=== PATIENT | male | born 1945 | race Caucasian/White ===

== ENCOUNTER 2017-04-04 10:12 | Inpatient (IN) | payer OTHER ==
[~2017-04-04 10:12] MED LIST: BUPIVACAINE 0.5% W/ EPI - 10 ML VIAL ONE; BUPivacaine Inj 0.25% PF - 10ml vial ONE; KETAMINE 100 MG/1 ML - 5 ML ONE; LIDOCAINE MPF 2% - 5 ML (20 MG/1 ML) ONE; MIDAZOLAM 5 MG/1 ML ONE; ROCURONIUM 10 MG/1 ML - 5 ML VIAL IVP ONE; Sodium Chloride 0.9% vial 10 ML ONE; fentaNYL Inj 250 MCG/5 ML VIAL ONE
[2017-04-04] MEDS ORDERED: Lactated Ringers 1,000 ML PRIMARY IV ONE ×2 (10:17→11:34)
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
[2017-04-04] MEDS ORDERED: DEXAMETHASONE PF 10 MG/1 ML VIAL ONE (11:33)
[2017-04-04] MEDS ORDERED: Ondansetron ODT Tab 8 MG TAB PO PRN (11:36)
[2017-04-04] MEDS ORDERED: fentaNYL Inj 100 MCG/2 ML VIAL IVP PRN (11:36)
[2017-04-04] MEDS ORDERED: HYDROmorphone 2 MG/1 ML IVP PRN (11:36)
[2017-04-04] MEDS ORDERED: ONDANSETRON 4 MG/2 ML VIAL IVP PRN ×3 (11:36→13:43)
[2017-04-04] MEDS ORDERED: NORMAL SALINE 10 ML SYRINGE FLUSH IVP PRN ×2 (11:36→12:38)
[2017-04-04] MEDS ORDERED: ATROPINE SULFATE 0.4 MG/1 ML VIAL IVP PRN (11:36)
[2017-04-04] MEDS ORDERED: Acetaminophen 1000mg Inj 1,000 MG in Premix 1 BAG IV ONE (11:36)
[2017-04-04] MEDS ORDERED: Lactated Ringers 1,000 ML PRIMARY IV SCH (11:45)
[2017-04-04] MEDS ORDERED: ROCURONIUM 10 MG/1 ML - 5 ML VIAL IVP ONE (11:51)
[2017-04-04] MEDS ORDERED: BUPivacaine Liposome/PF (Exparel) Inj 20ml vial INFIL ONE ×2 (12:00→12:28)
[2017-04-04] MEDS ORDERED: KETOROLAC 30 MG/1 ML VIAL ONE (12:16)
[2017-04-04] MEDS ORDERED: SUGAMMADEX SODIUM 200 MG/2 ML VIAL IV ONE ×2 (12:26→12:28)
--- NOTE | 2017-04-04 12:37 | GEN.OPNOTE ---
Operative Note Surgery Date: 04/04/17 Preoperative Diagnosis: Acute appendicitis Postoperative Diagnosis: Acute appendicitis Procedure: Appendectomy. Peritoneal biopsy Surgeon: Dennis Avalos MD Anesthesia Provider: Fiorella Saavedra CRNA Anesthesia Type: General Estimated Blood Loss (mL): 50 Fluids: LR please see anesthesia notes in EMR Pathology: Appendix sent for pathology. Mucinous cyst sent to pathology Indications: Patient's been having abdominal pain. CT scan showed he had acute appendicitis. Patient has received Cipro and Zosyn and vancomycin at the [facility] prior to be in transferred to [facility] Findings: Patient had a necrotic appendix. It was adherent to the retroperitoneum below the terminal ileum Complications: None noted Operative Summary: Patient is brought in operative room. Placed supine position. Given general trach anesthesia. Was prepped draped sterile fashion. Timeout performed per protocol. I made incision in the right lower quadrant over maximum tenderness. Hemostasis team electrocautery dissection to Timothy Ks tissue electrocautery. Initial did a muscle-splitting incision. Opened the posterior sheath. Place an Arvin retractor in. At this point we found a floppy cecum but could not identify the full appendix. Appendix actual behind the terminal ileum. The terminal ileum was stuck down into the pelvis. I then had a do the transverse muscle-splitting incision. This Kibbe adequate exposure. I then had a mobilize the cecum from which retroperitoneal attachments. I also added do some a lysis of adhesion of the small bowel and the terminal ileum. This gave adequate exposure so I can identified the appendix. I then did blunt finger dissection and sharp dissection to completely mobilize the appendix from its adherence to the retroperitoneum. Patient did have a necrotic wall. There did not appear to be a perforation. I doubly clamped the appendiceal base and divided the appendix. Doubly tied with 0 Vicryl suture. Cauterized the tip to the mucoceles. I then dissected the mesoappendix clamped and divided the mesoappendix. And handed the appendix off the surgical specimen. The tip of the appendix was malformed. There is some bleeding from retroperitoneum the had a be sutured let ligated with 30 Vicryl suture. After adequate hemostasis , the abdominal cavity was irrigated. I then ran the small bowel check and for any enterotomies none was noted. Off the very end of the cecum there was a mucinous cyst that I sharply dissected free. Hemostasis obtained left cautery. I returned the colon to its anatomical position. After removing Arvin retractor, I closed the posterior sheath with 0 Vicryl continuous running suture. At this point all counts were correct. I closed the anterior fascia with 0 Prolene continuous running suture. Irrigated the subcutaneous tissue. Infiltrated 20 mg of Exoprel for postoperative pain control. Skin reapproximated using skin sonam. Radiofrequency wand was used to see if there is any sponges left in the patient. None were noted. Patient Problems - Patient Problem List (1) Acute appendicitis Current Visit: Yes Status: Acute
[2017-04-04] MEDS ORDERED: KETOROLAC 15 MG/1 ML VIAL IVP PRN (12:38)
[2017-04-04] MEDS ORDERED: HYDROcodone-APAP 7.5 MG-325 MG TABLET PO PRN ×2 (12:38→13:43)
[2017-04-04] MEDS ORDERED: MORPHINE SULFATE 2 MG/1 ML IVP PRN ×2 (12:38→13:43)
[2017-04-04] MEDS ORDERED: NALOXONE 0.4 MG/1 ML VIAL IVP PRN ×2 (12:38→13:43)
[2017-04-04] MEDS ORDERED: Piperacillin/Tazobactam Inj 3.375 GM in Sodium Chloride 0.9% 100 ML IV SCH ×2 (12:45→19:00)
[2017-04-04] MEDS ORDERED: D5-1/2NS 1,000 ML PRIMARY IV SCH (12:45)
[2017-04-04] MEDS: D5-1/2NS 1,000 ML PRIMARY IV SCH (14:38)
[2017-04-04] MEDS: Piperacillin/Tazobactam Inj 3.375 GM in Sodium Chloride 0.9% 100 ML IV SCH ×2 (15:29→21:42)
--- NOTE | 2017-04-04 17:20 | CONSULT ---
Consult Note - Consult Consult Date: 04/04/17 Reason for Consult: PostOp Consulation : General Surgery Requesting Physician: Dr. Avalos Primary Care Provider: NONE NONE History and Physical - History of Present Illness Date and Time of Service: 04/04/2017, 1710 Chief Complaint: abdominal pain History of Present Illness: This is a 72 YO male that presented in transfer from [place], [place], with an accute appendicitis. The patient presented there yesterday or today with lower quadrant abdominal pain of acute onset. He had a history of prior diverticulitis that required a bowel resection. He was placed on cipro and vancomycin, but pain persisted, so a CT scan of the abdomen and pelvis was done and an acute appendicitis was diagnosed. He was given a dose of Invanz and transferred here for an appendectomy. Apparently, the patient has had hypoxia as well and was satting below 91% on room air. A CTA of the chest was done and was negative for pulmonary embolism or pneumonia. 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 The patient is still a little confused coming out of surgery, but denies any shortness of breath, chest pain, or other symptoms. He does mention he feels like he is going to pass out when he bends over to picker operator after his dog when walking the dog. He does not feel that right now. Taking a deep breath makes his abdominal pain worse, so he could be splinting due to abdominal pain. He denies sleep apnea. He denies a cough or chest pain. Thus far, no fever here. I was asked to see the patient for the hypoxia he had prior to OR. Currently, the patient is on 4 LPM of [place] oxygen. He has not had any pain mediations after surgery, but again, he has had a slow time coming out of anesthesia. Past Medical History Medical History: 1. Hypertension. 2. Hypercholesterolemia. 3. arthritis. 4. rotator cuff tear Surgical History: Patient's had a left hemicolectomy. He's had foot surgery. He's had 2 left knee surgeries Pertinent Family History: Coronary artery disease and heart failure Past Social History: does not smoke or drink. Lives alone [place]. Has healthy kids in [place]. Tobacco Use: Former Smoker Substance Use Type: None Alcohol Use: None Review of Systems - Review of Systems All Systems: Reviewed & No Additional Complaints Except as Stated - Respiratory Respiratory: REPORTS: Negative System Review - Cardiovascular Cardiovascular: REPORTS: Syncope (Presyncope symptoms when picking up after his dogs on walks, but no actual syncopal episodes.), Other (Denies PND, denies objective sleep apnea symptoms, denies daytime somnolence.) - Gastrointestinal Gastrointestinal / Abdominal: REPORTS: Other (History of diverticular problems. But not currently.), See HPI - Genitourinary Genitourinary: REPORTS: Other (Has had urine infections, but better now.) Medication / Allergies Home Medications: Home Medications Medication Instructions Recorded Confirmed Type Flaxseed Oil [Flax Seed Oil] 1 cap PO DAILY cap 06/09/16 04/04/17 History Gluc 2Kcl/Chondr/Aida Hy/Hy AC 1 cap PO DAILY cap 06/09/16 04/04/17 History [Glucosamine & Chondroitin Cap] Omeprazole 1 cap PO DAILY cap 06/09/16 04/04/17 History Pravastatin Sodium [Pravachol] 1 tab PO DAILY tab 06/09/16 04/04/17 History Allergies/Adverse Reactions: Allergies Allergy/AdvReac Type Severity Reaction Status Date / Time No Known Allergies Allergy Verified 04/04/17 14:06 Exam - Vitals Vital Signs: Vital Signs Temperature 97.6 F Temperature Source Temporal Artery Scan Pulse Rate [Pulse Oximeter] 59 Pulse Rate 59 Respiratory Rate 16 Blood Pressure [Left Arm] 125/77 Blood Pressure 123/75 Pulse Ox 91 Oxygen Flow Rate 4 Oxygen Flow Rate 10 Oxygen Delivery Method Nasal Cannula Height 5 ft 10 in Weight 218 lb - General General Appearance: POSITIVE: No Acute Distress, Cooperative - Head Head Exam: POSITIVE: Normal Inspection, Normocephalic, Atraumatic - Eye Eye Exam: POSITIVE: No Scleral Icterus - Neck Neck Exam: POSITIVE: Normal Inspection, No Tenderness, No Thyromegaly - Respiratory Respiratory Exam: POSITIVE: Clear to Auscultation - Bilaterally, Breathing Non Labored, Normal to Percussion and Palpation - Cardiovascular Cardiovascular Exam: POSITIVE: RRR, No Murmur, No Clicks, No Gallops, No Rubs, No JVD - GI/Abdominal GI/Abdominal Exam: POSITIVE: Normal Bowel Sounds, Non Distended, Soft (Tender in right lower quadrant, even when pressing in the upper quadrants) - Rectal Rectal Exam: POSITIVE: Deferred - External Exam: POSITIVE: Deferred Exam: POSITIVE: Deferred - Extremities Extremities Exam: POSITIVE: No Clubbing Present, No Edema Present, No Cyanosis Present - Back Back Exam: POSITIVE: No CVA Tenderness - Neurological Neurological Exam: POSITIVE: Alert, Oriented x 3, No Facial Droop, Speech Intact / Clear, Moves All Extremities Equally - Psychiatric Psychiatric Exam: POSITIVE: Normal Affect, Normal Mood Results - Labs Labs - Last 24 Hours: I reviewed labs from [place], [place], and the creatinine is slightly elevated at 1.46. CT scan reports for the chest and the abdomen were reviewed. I do not have the films to look at. On those films, the patient has a ascending aortic aneurysm of 4 cm. He had positive findings for acute appendicitis. - EKG Data -: EKG Interpreted by Me Rate: Normal EKG Shows Normal: Sinus Rhythm - EKG Data EKG Interpretation: Other (This was reviewed from [place], [place], on my view of the tracing, the patient does have normal sinus rhythm with an occasional premature atrial beat.) - Imaging Status: Report Reviewed by Me (As noted above.) Assessment and Plan - Patient Problems (1) Hypoxia Current Visit: Yes Status: Acute (2) Acute appendicitis Current Visit: Yes Status: Acute Qualifiers: Acute appendicitis type: unspecified acute appendicitis type Qualified Description: Acute appendicitis, unspecified acute appendicitis type Qualifier Code(s): (K35.80) Unspecified acute appendicitis (3) Ascending aortic aneurysm Current Visit: Yes Status: Acute (4) Hypertension Current Visit: Yes Status: Chronic Qualifiers: Hypertension type: essential hypertension Qualified Description: Essential hypertension Qualifier Code(s): (I10) Essential (primary) hypertension (5) Hypercholesterolemia Current Visit: Yes Status: Acute - Assessment / Plan Additional Assessment/Plan Details: Hypoxemia could have a large differential, but I suspect overall this is probably from splinting in the setting of a acute appendicitis and acute abdominal pain. I think an incentive spirometer will help with this. I will order that. He's had imaging of the chest and pulmonary embolism is been ruled out. There is no pneumonia reported on that study. He might benefit from a sleep apnea study as an outpatient as he does have a body habitus suggestive of obstructive sleep apnea. However, he does not have hypersomnolence during the day. For the ascending aortic aneurysm, I think he should visit with a associate accountant or thoracic surgeon in the future, but it is too small this time to do any interventions. I will make sure he is on beta blockers prior to discharge but hold off today. Stop his diuretic. Patient may warrant further cardiac workup and evaluation including a stress test given his aortic aneurysm finding, but would like him to improve from the appendicitis first. He is artery status post appendectomy, so we can do a stress test, probably chemical stress test, in the near future. He is not a candidate for treadmill stress test given his aortic aneurysm. They keep his consult, will be our pleasure to continue to follow this patient during his hospital stay and advise.
[2017-04-04] MEDS ORDERED: Pravastatin 80mg Tab PO SCH (21:00)
[2017-04-04] MEDS: KETOROLAC 15 MG/1 ML VIAL IVP PRN (21:41)
[2017-04-05] MEDS ORDERED: NORMAL SALINE 10 ML SYRINGE FLUSH IVP PRN ×2 (00:36→04:07)
[2017-04-05] MEDS: D5-1/2NS 1,000 ML PRIMARY IV SCH (00:40)
[2017-04-05] MEDS: KETOROLAC 15 MG/1 ML VIAL IVP PRN ×2 (04:03→11:36)
[2017-04-05] MEDS: Piperacillin/Tazobactam Inj 3.375 GM in Sodium Chloride 0.9% 100 ML IV SCH ×2 (04:04→10:09)
[2017-04-05 05:58] LABS: HEMATOCRIT 33.6 % (42.0-52.0); HEMOGLOBIN 11.1 g/dL (14.0-18.0); MEAN CORPUSCULAR HEMOGLOBIN 30.8 PG (27-31); MEAN CORPUSCULAR VOLUME 93.3 FL (80-90)
[2017-04-05 05:59] LABS: BASOPHILS # (AUTO) 0.01 10*3/UL; BASOPHILS % (AUTO) 0.1 % (0-1); EOSINOPHILS # (AUTO) 0 10*3/UL; EOSINOPHILS % (AUTO) 0 % (0-8); LYMPHOCYTES # (AUTO) 0.52 10*3/uL; MEAN PLATELET VOLUME 11.1 FL (7.4-12.2); MONOCYTES # (AUTO) 0.46 10*3/UL (0.3-0.8); MONOCYTES % (AUTO) 4.5 % (5-15); NEUTROPHILS # (AUTO) 9.13 10*3/UL; NEUTROPHILS % (AUTO) 90.1 % (50-80); PLATELET MORPHOLOGY COMMENT NORMAL MORPHOLOGY (NORM); RBC MORPHOLOGY COMMENT NORMAL MORPHOLOGY (NORM); WBC MORPHOLOGY COMMENT NORMAL MORPHOLOGY (NORM)
[2017-04-05 06:00] LABS: BLOOD UREA NITROGEN 21 mg/dL (7-22); CALCIUM 7.7 mg/dL (8.7-10.7); EST GLOMERULAR FILTRATION > 60 (>60 ml/min/1.73m(2)); SERUM ALBUMIN 2.8 g/dL (3.5-4.8)
[2017-04-05] MEDS ORDERED: OMEPRAZOLE 20 MG CAPSULE PO SCH (07:00)
--- NOTE | 2017-04-05 09:02 | DCSUMMARY ---
Discharge Summary Admit Date: 04/04/17 Discharge Date: 04/05/17 Admitting Diagnosis: acute appendicitis Discharge Diagnosis: Acute appendicitis with a necrotic appendix Primary Surgery and Date: 04/04/2017 appendectomy Hospital Course: 72-year-old gentleman who comes in with acute appendicitis. Patient time of surgery was found to have necrotic appendix. Is more extensive surgery than a normal appendectomy secondary to adhesions. Patient actually did very well with the surgery having no problems. First postoperative day his white count was normal and he is afebrile. He is stating 7 very little discomfort. He was continued on antibiotics for first postoperative day. He is to the point where he can be discharged home. Because of difficulties getting the patient back up to [facility] for postoperative follow-up we will work closely with Dr. Mehta. Dr. Mehta will takes sonam out in 7-10 days. I have personally spoken to Dr. Mehta about this. Any additional problems he will contact us and we will see the patient. Also, the patient needs to follow-up with his primary care doctors about possible sleep apnea and to follow his aortic abdominal aneurysm. Dr. Mulligan (hospitalist) would like to gentleman who started on beta blockers Exam - Vitals Vital Signs: Vital Signs Temperature 98.0 F Temperature Source Temporal Artery Scan Pulse Rate [Apical] 60 Pulse Rate [Pulse Oximeter] 64 Pulse Rate 59 Respiratory Rate 20 Blood Pressure [Left Arm] 108/75 Blood Pressure 123/75 Pulse Ox 92 Oxygen Flow Rate 1.5 Oxygen Flow Rate 10 Oxygen Delivery Method Nasal Cannula Height 5 ft 10 in Weight 98.883 kg - General General Appearance: POSITIVE: No Acute Distress - Head Head Exam: POSITIVE: Normocephalic - Eye Eye Exam: POSITIVE: PERRL, EOMI - Respiratory Respiratory Exam: POSITIVE: Clear to Auscultation - Bilaterally, Breathing Non Labored - Cardiovascular Cardiovascular Exam: POSITIVE: RRR, No Murmur - GI/Abdominal GI/Abdominal Exam: POSITIVE: Normal Bowel Sounds, Non Tender, Non Distended, Soft Additional GI/Abdominal Exam Details: Dressings are dry incision clean Patient Problems - Patient Problem List (1) Acute appendicitis Current Visit: Yes Status: Acute Qualifiers: Acute appendicitis type: unspecified acute appendicitis type Qualified Description: Acute appendicitis, unspecified acute appendicitis type Qualifier Code(s): (K35.80) Unspecified acute appendicitis
--- NOTE | 2017-04-05 09:54 | CRNA.PROGR ---
Anesthesia Note Anesthesia Progress Note: Post open appy 04/04/17 Lying in bed, cheerful. States he's eaten. Not nauseated. Room air now. Denies any more "chills". States that when he awoke all staff looked like fish with fins. Not frightening but vivid. States his discomfort is controlled. " A little sore" , points to right lower quadrant. Laboratory Results 04/05/17 Range/Units 04:20 WBC 10.14 (4.8-10.8) 10^3/uL RBC 3.60 L (4.70-6.10) 10^6/uL Hgb 11.1 L (14.0-18.0) g/dL Hct 33.6 L (42.0-52.0) % MCV 93.3 H (80-90) FL MCH 30.8 (27-31) PG MCHC 33.0 (33-37) g/dL RDW Std Deviation 44.8 (39-50) fL RDW Coeff of Kyle 13.4 (11.5-14.5) % Plt Count 120 L (140-350) 10*3/uL MPV 11.1 (7.4-12.2) FL Immature Gran % (Auto) 0.2 (0-5) % Neut % (Auto) 90.1 H (50-80) % Lymph % (Auto) 5.1 L (10-50) % Riley % (Auto) 4.5 L (5-15) % Eos % (Auto) 0 (0-8) % Baso % (Auto) 0.1 (0-1) % Immature Gran # (Auto) 0.02 10*3/UL Neut # (Auto) 9.13 10*3/UL Lymph # (Auto) 0.52 10*3/uL Riley # (Auto) 0.46 (0.3-0.8) 10*3/UL Eos # (Auto) 0 10*3/UL Baso # (Auto) 0.01 10*3/UL WBC Morphology Comment Normal morphology (NORM) Plt Morphology Comment Normal morphology (NORM) RBC Morph Comment Normal morphology (NORM) Sodium 136 (135-145) meq/L Potassium 3.5 L (3.8-5.2) meq/L Chloride 105 (98-112) meq/L Carbon Dioxide 23 (23-33) meq/L Anion Gap 8 (5-20) BUN 21 (7-22) mg/dL Creatinine 1.0 (0.70-1.50) mg/dL Estimated GFR > 60 (>60 ml/min/1.73m(2)) BUN/Creatinine Ratio 21.00 H (6-20) Glucose 184 H (78-110) mg/dL Calculated Osmolality 289.0 (267-292) mOsm/kg Calcium 7.7 L (8.7-10.7) mg/dL Total Bilirubin 0.8 (0.3-1.2) mg/dL AST 35 (21-57) IU/L ALT 49 (21-72) IU/L Alkaline Phosphatase 39 (38-126) IU/L Total Protein 5.4 L (6.1-8.0) g/dL Albumin 2.8 L (3.5-4.8) g/dL Globulin 2.6 (2.50-4.10) g/dL Albumin/Globulin Ratio 1.00 L (1.3-2.0) mg/g Has been up to bathroom but otherwise not ambitious to get up and around. Ambulation encouraged. No apparent anesthetic difficulties. Vital Signs (24 hrs) Temp Pulse Pulse Pulse Resp BP BP 04/05/17 08:17 98.0 F 64 20 108/75 04/05/17 05:00 98.1 F 62 20 95/66 04/05/17 03:22 04/05/17 00:31 98.2 F 70 20 123/73 04/04/17 20:23 98.3 F 61 20 98/63 04/04/17 19:03 60 20 04/04/17 19:00 04/04/17 17:00 98.2 F 67 20 130/96 04/04/17 14:15 97.6 F 59 L 16 125/77 04/04/17 14:00 97.6 F 61 16 120/73 04/04/17 13:45 97.6 F 62 16 113/68 04/04/17 13:30 97.6 F 65 20 124/73 04/04/17 13:15 59 L 18 123/75 04/04/17 13:10 60 16 131/76 04/04/17 13:05 60 18 125/78 04/04/17 13:00 66 18 131/77 04/04/17 12:55 66 18 125/78 04/04/17 12:50 61 18 147/69 04/04/17 12:45 97.6 F 67 16 107/80 04/04/17 10:30 99.5 F 66 13 96/58 Pulse Ox 04/05/17 08:17 92 04/05/17 05:00 96 04/05/17 03:22 93 04/05/17 00:31 93 04/04/17 20:23 97 04/04/17 19:03 04/04/17 19:00 92 04/04/17 17:00 99 04/04/17 14:15 91 04/04/17 14:00 90 04/04/17 13:45 93 04/04/17 13:30 92 04/04/17 13:15 04/04/17 13:10 04/04/17 13:05 04/04/17 13:00 04/04/17 12:55 04/04/17 12:50 04/04/17 12:45 04/04/17 10:30 Vital Signs - Last Taken Temperature 98.0 F 04/05/17 08:17 Pulse Rate 64 04/05/17 08:17 Respiratory Rate 20 04/05/17 08:17 Blood Pressure 108/75 04/05/17 08:17 Pulse Ox 92 04/05/17 08:17
[2017-04-05] MEDS ORDERED: POTASSIUM CHLORIDE 20 MEQ TAB PO ONE (11:12)
[2017-04-05 12:54] VITALS: RESP 16; TEMP 98.1
--- NOTE | 2017-04-05 13:42 | PDOC(PROG) ---
Date and Time of Service: 04/05/2017, 1402 Interval History: Patient denies any chest pain, shortness breath, nausea or vomiting. His abdominal pain is well controlled. He is been discharged by Dr. Avalos, and notably had full resolution of hypoxia. I suspect it was probably related to splinting with abdominal pain related to appendicitis. We spoke about the ascending thoracic aortic aneurysm and the patient would like us to help him arrange an appointment with cardiology if possible in [place], and we'll try to do that on Thursday. Objective : Data - Labs CBC and BMP: 04/05/17 04:20 04/05/17 04:20 Labs - Last 24 Hours: Laboratory Results 04/05/17 Range/Units 04:20 WBC 10.14 (4.8-10.8) 10^3/uL RBC 3.60 L (4.70-6.10) 10^6/uL Hgb 11.1 L (14.0-18.0) g/dL Hct 33.6 L (42.0-52.0) % MCV 93.3 H (80-90) FL MCH 30.8 (27-31) PG MCHC 33.0 (33-37) g/dL RDW Std Deviation 44.8 (39-50) fL RDW Coeff of Kyle 13.4 (11.5-14.5) % Plt Count 120 L (140-350) 10*3/uL MPV 11.1 (7.4-12.2) FL Immature Gran % (Auto) 0.2 (0-5) % Neut % (Auto) 90.1 H (50-80) % Lymph % (Auto) 5.1 L (10-50) % Millard % (Auto) 4.5 L (5-15) % Eos % (Auto) 0 (0-8) % Baso % (Auto) 0.1 (0-1) % Immature Gran # (Auto) 0.02 10*3/UL Neut # (Auto) 9.13 10*3/UL Lymph # (Auto) 0.52 10*3/uL Millard # (Auto) 0.46 (0.3-0.8) 10*3/UL Eos # (Auto) 0 10*3/UL Baso # (Auto) 0.01 10*3/UL WBC Morphology Comment Normal morphology (NORM) Plt Morphology Comment Normal morphology (NORM) RBC Morph Comment Normal morphology (NORM) Sodium 136 (135-145) meq/L Potassium 3.5 L (3.8-5.2) meq/L Chloride 105 (98-112) meq/L Carbon Dioxide 23 (23-33) meq/L Anion Gap 8 (5-20) BUN 21 (7-22) mg/dL Creatinine 1.0 (0.70-1.50) mg/dL Estimated GFR > 60 (>60 ml/min/1.73m(2)) BUN/Creatinine Ratio 21.00 H (6-20) Glucose 184 H (78-110) mg/dL Calculated Osmolality 289.0 (267-292) mOsm/kg Calcium 7.7 L (8.7-10.7) mg/dL Total Bilirubin 0.8 (0.3-1.2) mg/dL AST 35 (21-57) IU/L ALT 49 (21-72) IU/L Alkaline Phosphatase 39 (38-126) IU/L Total Protein 5.4 L (6.1-8.0) g/dL Albumin 2.8 L (3.5-4.8) g/dL Globulin 2.6 (2.50-4.10) g/dL Albumin/Globulin Ratio 1.00 L (1.3-2.0) mg/g Objective : Exam - General General Appearance: No Acute Distress, Cooperative Additional General Exam Details: Vital Signs - Last Taken Temperature 98.1 F 04/05/17 12:50 Pulse Rate 87 04/05/17 12:50 Respiratory Rate 16 04/05/17 12:50 Blood Pressure 105/67 04/05/17 12:50 Pulse Ox 92 04/05/17 12:50 - Respiratory Respiratory Exam: Clear to Auscultation - Bilaterally, Breathing Non Labored - Cardiovascular Cardiovascular Exam: RRR, No Murmur, No Clicks, No Gallops, No Rubs, No JVD - GI/Abdominal GI/Abdominal Exam: Normal Bowel Sounds, Non Tender (Today on palpation not tender), Non Distended, Soft - Extremities Extremities Exam: No Clubbing Present, No Edema Present, No Cyanosis Present - Neurological Neurological Exam: Alert, Oriented x 3, No Facial Droop, Speech Intact / Clear, Moves All Extremities Equally Assessment and Plan - Patient Problems (1) Hypoxia Current Visit: Yes Status: Acute Comment: Probably related to splinting from acute appendicitis and pain in the abdomen. Resolved. I still think he would benefit from cardiac workup as will be noted below. (2) Acute appendicitis Current Visit: Yes Status: Acute Qualifiers: Acute appendicitis type: unspecified acute appendicitis type Qualified Description: Acute appendicitis, unspecified acute appendicitis type Qualifier Code(s): (K35.80) Unspecified acute appendicitis (3) Ascending aortic aneurysm Current Visit: Yes Status: Acute Comment: Placed on beta tyshawn to start 12.5 mg twice a day of metoprolol tartrate. Recommend cardiology evaluation. Patient does have presyncopal symptoms that could be related to this although I doubt that but could be cardiac in nature. Could be postural hypotension as well. (4) Hypertension Current Visit: Yes Status: Chronic Qualifiers: Hypertension type: essential hypertension Qualified Description: Essential hypertension Qualifier Code(s): (I10) Essential (primary) hypertension (5) Hypercholesterolemia Current Visit: Yes Status: Acute - Assessment / Plan Additional Assessment/Plan Details: Start metoprolol 12.5 mg by mouth twice a day in the next 3-4 days. Follow with primary care provider in 7 days to review blood pressures and plan for ascending thoracic aortic aneurysm Arrange appointment with cardiology for evaluation for this as well. This will have to be done Thursday as we are on the holiday weekend with tomorrow. At this time Hospital service will sign off. Thank you for this consult.
== END 2017-04-05 14:30 | disposition home or self-care (01) | DRG 395 ==
LOC: SDSC 10:12 → MED/SURG 12:44
PROVIDERS: ADMIT Surgery; ATTEND Surgery
DX: K35.80 Unspecified acute appendicitis (principal); K63.9 Disease of intestine, unspecified; R09.02 Hypoxemia; I71.4 Abdominal aortic aneurysm, without rupture; I10 Essential (primary) hypertension; E78.00 Pure hypercholesterolemia, unspecified
CPT/HCPCS: 44100; 44950; A4216; C9290; J1885; J2704; J3010; 36415; 80053; 85025; 94150; 94761; J1100; J2001; J2250; J2543; J7050; J7120